=== PATIENT | female | born 1950 | race Caucasian/White ===

== ENCOUNTER 2021-12-16 15:17 | Outpatient (AMB) | payer MEDICARE, OTHER, SELFPAY ==
--- NOTE | 2021-12-16 16:43 | RT.TREATMENT ---
RT Treatment RT Note RT Note: EEG completed waiting to be read. Office Procedures RT Procedures Procedures EEG Extended Monitoring Awake/Drowsy: Yes
== END 2021-12-16 16:41 | disposition home or self-care (01) ==
LOC: HODRTX 15:17
PROVIDERS: PCP Family Medicine; Visit Provider Family Medicine
DX: G40.911 Epilepsy, unspecified, intractable, with status epilepticus (principal)

== ENCOUNTER → 2024-12-06 | Outpatient (CLI) | payer MEDICARE, OTHER, SELFPAY ==
--- NOTE | 2024-12-06 12:26 | XR_ITS ---
Examination: Bilateral hips, AP pelvis, 5 views Technique: AP, lateral views both hips, AP pelvis, 5 views Exam date and time: December 05, 2024 at 1239 hours INDICATIONS: Patient fell yesterday with injury to the hips, hip pain FINDINGS: Significant osteopenia No hip or pelvic fractures No hip dislocations IMPRESSION: No hip or pelvic fractures
--- NOTE | 2024-12-06 12:26 | XR_ITS ---
Examination: Lumbar spine, 5 views Technique: Lumbar spine AP, lateral, coned lateral lower lumbar spine, bilateral obliques 5 views Exam date and time: December 06, 2024 1239 hours INDICATIONS: Patient fell yesterday with injury to the lower back, lower back pain. FINDINGS: Prominent osteopenia No acute lumbar fracture Advanced disc narrowing L2-L3, L5-S1 IMPRESSION: No acute lumbar fracture
== END | disposition home or self-care (01) ==
PROVIDERS: PCP Nurse Practitioner Family; Referring Provider Nurse Practitioner Family; Visit Provider Nurse Practitioner Family
DX: M85.88 Other specified disorders of bone density and structure, other site (principal); M25.551 Pain in right hip; M25.552 Pain in left hip; M54.50 Low back pain, unspecified
CPT/HCPCS: 72110; 73522

== ENCOUNTER → 2024-12-25 | Outpatient (CLI) | payer MEDICARE, OTHER, SELFPAY ==
--- NOTE | 2024-12-25 15:55 | XR_ITS ---
Examination: Lumbar spine, 5 views Technique: Lumbar spine AP, lateral, coned lateral lower lumbar spine, bilateral obliques 5 views Exam date and time: December 25, 2024, 6008 hours. Comparison December 06, 2024 INDICATIONS: Patient fell 3 weeks ago with injury to lower back, lower back pain. FINDINGS: Prominent osteopenia Mild depression superior endplate L1 Advanced degenerative disc disease L2-L3, L4-L5, L5-S1 IMPRESSION: Recommend CT scan lumbar spine follow-up to confirm acute fracture L1 vertebral body
--- NOTE | 2024-12-25 15:56 | XR_ITS ---
Examination: Thoracic spine 3 views TECHNIQUE: AP lateral, lateral upper dorsal spine 3 views Date and time: December 25, 2024, 1615 hours INDICATIONS: Patient fell 3 weeks ago with injury to the upper back, upper back pain. FINDINGS: Prominent osteopenia. No acute thoracic fracture. Diffuse mild to moderate thoracic degenerative disc disease. IMPRESSION: No acute thoracic fracture
== END | disposition home or self-care (01) ==
PROVIDERS: PCP Nurse Practitioner Family; Referring Provider Nurse Practitioner Family; Visit Provider Nurse Practitioner Family
DX: S39.92XA Unspecified injury of lower back, initial encounter (principal); S29.9XXA Unspecified injury of thorax, initial encounter; W19.XXXA Unspecified fall, initial encounter
CPT/HCPCS: 72072; 72110

== ENCOUNTER → 2025-01-05 | Outpatient (CLI) | payer MEDICARE, OTHER, SELFPAY ==
--- NOTE | 2025-01-05 15:45 | XR_ITS ---
Examination: MRI lumbar spine without contrast Date and time of exam: January 05, 2025, 1724 hours INDICATIONS: Patient fell one month ago with injury to lower back, lower back pain Technique: Multiple MRI axial and sagittal sections lumbar spine. Sagittal T2-weighted images, TR 3500, TE 118 T1 weighted transverse sections, TR 688 T8.5, T2-weighted sagittal sections T1 weighted sagittal sections TR 621, TE 30 T2 axial sections, TR 4, 190, TE 84. Findings: Subacute compression fracture L1 vertebral body, depression superior endplate, reduction in height 30% Retropulsion of the posterior superior margin of this vertebral body 3 mm Diffuse lumbar disc desiccation The vastus narrowing L5-S1 L5-S1 no disc protrusion L4-L5 4 mm central lumbar disc bulge L3-L4 no disc protrusion L2-L3 no disc protrusion L1-L2 no disc protrusion IMPRESSION: Subacute fracture L1 vertebral body, depression superior endplate, reduction in height 30% Retropulsion posterior superior margin of this vertebral body 3 mm, no impingement upon the cauda equina
--- NOTE | 2025-01-05 16:15 | XR_ITS ---
Examination: MRI thoracic spine without contrast. Date and time of exam: January 05, 2025 1651 hours INDICATIONS: Patient fell one month ago with injury to the back, back pain Technique: Multiple sagittal and axial images of the thoracic spine have been obtained. T1 weighted localizer, sagittal T2 weighted images, TR 30-50, TE 148, T1 weighted sagittal images, TR 650, TE 14, T2-weighted transverse images, TR 6770, TE 142 Findings: Adequate alignment thoracic vertebral bodies Mild old depression superior endplate T12 No acute thoracic fracture Diffuse thoracic disc desiccation No focal thoracic disc protrusion impinging upon the thoracic cord IMPRESSION: No thoracic fracture Diffuse mild thoracic degenerative disc disease Please see the MRI lumbar spine report
== END | disposition home or self-care (01) ==
LOC: SMRI 15:11
PROVIDERS: PCP Physician Assistant; Referring Provider Nurse Practitioner Family; Visit Provider Nurse Practitioner Family
DX: S32.018A Other fracture of first lumbar vertebra, initial encounter for closed fracture (principal); W19.XXXA Unspecified fall, initial encounter; M51.34 Other intervertebral disc degeneration, thoracic region
CPT/HCPCS: 72146; 72148

== ENCOUNTER → 2025-02-08 | Outpatient (CLI) | payer MEDICARE, OTHER, SELFPAY ==
--- NOTE | 2025-02-08 11:00 | XR_ITS ---
Examination: Screening digital mammography, bilateral Computer aided detection 3-D breast Tomosynthesis, bilateral Date and time of exam: February 08, 2025 1120 hours Compared to mammograms dating to February 08, 2024 Indication: Screening Technique: Nonmagnified MLO, CC views of the breasts to been obtained, reconstructed from 3-D Tomosynthesis images. R2 computer aided detection program utilized for evaluation of suspicious masses and/or abnormal calcifications. 3-D Tomosynthesis images obtained. Findings: Scattered areas of fibroglandular density 2 areas of nodular asymmetry on the right cc view, 5 mm, 4 mm, central and slightly inner right breast Benign calcifications Impression: BI-RADS Category 0: Incomplete: Need additional imaging evaluation 5 mm, 4 mm nodular areas of asymmetry central and slightly inner right breast on the CC view, recommend follow-up spot tomographic CC view, spot tomographic MLO view upper right breast, bilateral breast sonography to complete the workup.
== END | disposition home or self-care (01) ==
LOC: CDIM 10:34
PROVIDERS: Referring Provider Physician Assistant; Visit Provider Physician Assistant
DX: Z12.31 Encounter for screening mammogram for malignant neoplasm of breast (principal); N64.89 Other specified disorders of breast
CPT/HCPCS: 77063; 77067

== ENCOUNTER → 2025-03-18 | Outpatient (CLI) | payer MEDICARE, OTHER, SELFPAY ==
--- NOTE | 2025-03-18 12:30 | XR_ITS ---
Examination: Breast ultrasound complete, bilateral Date and time of exam: March 18, 2025 1307 hours INDICATIONS: 5 mm 4 mm areas of nodular asymmetry center in the right breast on mammogram February 08, 2025 Technique: Real-time grayscale ultrasonographic imaging bilateral breasts, including all 4 quadrants as well as nipple retroareolar and axillary regions. Findings: No cystic or solid mass involving either breast Retroareolar dilated ducts IMPRESSION: BI-RADS Category 2: Benign findings
--- NOTE | 2025-03-18 13:30 | XR_ITS ---
Examination: Diagnostic digital mammography, unilateral, right Computer aided detection 3-D breast Tomosynthesis, unilateral Date and time of exam: March 18, 2025 1320 hours INDICATIONS: Mammogram February 08, 2025 nodular asymmetries 5 mm 4 mm central and inner right breast on mammogram February 09, 2025 Technique: Nonmagnified MLO, CC views of the right breast have been obtained, reconstructed from 3-D Tomosynthesis images. R2 computer aided detection program utilized for evaluation of suspicious masses and/or abnormal calcifications. 3-D Tomosynthesis images obtained. Findings: Scattered areas of fibroglandular density 1 focal asymmetry remains in nipple level right breast, 5 mm Impression: BI-RADS category 3: Probably benign findings Recommend 1 additional 6 month right mammogram follow-up
== END | disposition home or self-care (01) ==
LOC: CDIM 12:15
PROVIDERS: PCP Family Medicine; Referring Provider Physician Assistant; Visit Provider Physician Assistant
DX: R92.331 Mammographic heterogeneous density, right breast (principal)
CPT/HCPCS: 76641; 77061; 77065; G0279

== ENCOUNTER → 2025-05-31 | Outpatient (CLI) | payer MEDICARE, OTHER, SELFPAY ==
[2025-05-31 16:47] LABS: Albumin, Serum 4.5 gm/dL (3.4-4.8); Anion Gap 8 (7-16); BUN/Creatinine Ratio 18 Ratio (12-20); Blood Urea Nitrogen 23 mg/dL (9-23); Calcium 9.2 mg/dL (8.3-10.6); Calcium (Corrected) 9.2 mg/dL (8.5-10.1); Carbon Dioxide 32.6 mMol/L (20.0-31.0); Chloride 105 mMol/L (98-107); Creatinine (Component) 1.3 mg/dL (0.6-1.3); Glucose 94 mg/dL (74-106); Osmolality,Calculated 294 (275-295); Phosphorous 4.2 mg/dL (2.4-5.1); Potassium 4.3 mMol/L (3.4-5.1); Sodium 146 mMol/L (136-145); eGFR 43 See Note
== END | disposition home or self-care (01) ==
LOC: COPL 15:26
PROVIDERS: PCP Family Medicine; Referring Provider Internal Medicine; Visit Provider Internal Medicine
DX: I12.9 Hypertensive chronic kidney disease with stage 1 through stage 4 chronic kidney disease, or unspecified chronic kidney disease (principal); N18.32 Chronic kidney disease, stage 3b; F34.1 Dysthymic disorder; K86.81 Exocrine pancreatic insufficiency; E78.5 Hyperlipidemia, unspecified; G47.00 Insomnia, unspecified; R80.9 Proteinuria, unspecified; R56.9 Unspecified convulsions; M32.9 Systemic lupus erythematosus, unspecified
CPT/HCPCS: 36415; 80069

== ENCOUNTER → 2025-06-12 | Outpatient (CLI) | payer MEDICARE, OTHER, SELFPAY ==
[2025-06-12 13:36] LABS: Basophils # (Auto) 0.1 Thou/mm3 (0.0-0.2); Basophils % (Auto) 1 % (0-2.5); Eosinophils # (Auto) 0.2 Thou/mm3 (0.0-0.5); Eosinophils % (Auto) 2 % (0-10); Hematocrit 44.2 % (36.0-46.0); Hemoglobin 14.5 g/dL (12.0-16.0); Immature Granulocytes Auto 0.02 Thou/mm3 (0.00-0.00); Lymphocytes # (Auto) 1.7 Thou/mm3 (1.0-4.8); Lymphocytes % (Auto) 20 % (10-50); Mean Corpuscular HGB Conc 32.8 g/dl (31.0-37.0); Mean Corpuscular Hemoglobin 30.5 pg (25.0-35.0); Mean Corpuscular Volume 93 fL (80-100); Monocytes # (Auto) 0.5 Thou/mm3 (0.0-0.8); Monocytes % (Auto) 6 % (0-12); Neutrophils # (Auto) 5.9 Thou/mm3 (1.8-7.7); Neutrophils % (Auto) 71 % (37-80); Nucleated Red Blood Cell # 0.00 Thou/mm3 (0.00-0.00); Nucleated Red Blood Cell % 0 /100 WBC (0); Platelet Count 273 Thou/mm3 (140-440); RDW Standard Deviation 48.5 fL (36.4-46.3); Red Blood Count 4.75 Miln/mm3 (4.00-5.20); White Blood Count 8.3 Thou/mm3 (3.6-11.0)
[2025-06-12 13:49] LABS: Glucose Estimated Average 114 mg/dL (80-131); Hemoglobin A1C 5.6 % Hgb (4.8-6.0)
[2025-06-12 14:15] LABS: Alanine Aminotransferase 13 U/L (10-49); Albumin, Serum 4.9 gm/dL (3.4-4.8); Albumin/Globulin Ratio 2.0 (1.2-2.2); Alkaline Phosphatase 100 U/L (46-116); Anion Gap 12 (7-16); Aspartate Amino Transferase 20 U/L (0-34); BUN/Creatinine Ratio 15 Ratio (12-20); Bilirubin,Total 0.4 mg/dL (0.3-1.2); Blood Urea Nitrogen 21 mg/dL (9-23); Calcium 9.5 mg/dL (8.3-10.6); Calcium (Corrected) 9.5 mg/dL (8.5-10.1); Carbon Dioxide 28.0 mMol/L (20.0-31.0); Cardiac Risk Estimate 2.1 RATIO (3.7-5.6); Chloride 107 mMol/L (98-107); Cholesterol 217 mg/dL (132-200); Creatinine (Component) 1.4 mg/dL (0.6-1.3); Globulin 2.4 gm/dL (2.3-3.5); Glucose 91 mg/dL (74-106); HDL Cholesterol 105 mg/dL (40-60); LDL Cholesterol,Calculated 98 mg/dL (0-130); Osmolality,Calculated 295 (275-295); Potassium 4.8 mMol/L (3.4-5.1); Sodium 147 mMol/L (136-145); Thyroid Stimulating Hormone 1.39 uIU/mL (0.55-4.78); Total Protein 7.3 gm/dL (5.7-8.2); Triglycerides 70 mg/dL (30-150); eGFR 39 See Note
[2025-06-12 14:22] LABS: Folate > 24.00 ng/mL (>5.38); Vitamin B12 710 pg/mL (211-911); Vitamin D 25 Hydroxy Total 50.7 ng/mL (7.3-40.2)
== END | disposition home or self-care (01) ==
LOC: COPL 11:50
PROVIDERS: PCP Student in an Organized Health Care Education/Training Program; Referring Provider Student in an Organized Health Care Education/Training Program; Visit Provider Student in an Organized Health Care Education/Training Program
DX: R05.9 Cough, unspecified (principal); E78.5 Hyperlipidemia, unspecified; R53.83 Other fatigue
CPT/HCPCS: 36415; 80053; 80061; 82306; 82607; 82746; 83036; 84443; 85025